=== PATIENT | male | born 1985 | race American Indian/Alaskan Native ===

== ENCOUNTER → 2024-05-21 | Outpatient (CLI) | payer OTHER, SELFPAY ==
--- NOTE | 2024-05-21 16:30 | XR_ITS ---
Examination: CT middle inner ear, without contrast. 2-D coronal reconstructions. 2-D sagittal reconstructions. Date and time of exam: May 21, 2024 1650 hours INDICATIONS: Diagnosis chronic mastoiditis, right ear hearing loss and drainage, 5 years post injury 9 years old CTDI: vol (mGy): 15.7 DLP: (mGycm):241 Technique: Multiple 1.0 mm axial sections of the middle inner ears bilaterally. High-resolution 64 slice scanner utilized. 2-D coronal reconstructions 2-D sagittal reconstructions Low dose protocols were performed. One or more of the following dose reduction techniques were used; automated exposure control, adjustment of the mA and/or KV according to patient size, use of iterative reconstruction technique. Findings: Axial sections of the right demonstrate severely reduced mastoid aeration. Jugular fossa and carotid canal do not appear remarkable. No deformity of the ossicles. Porus acusticus internus does not exhibit erosion. Cochlear apparatus unremarkable. Semicircular canals normal. External auditory canal open. Coronal reconstructions demonstrate no erosion of the scutum. No soft tissue mass in the attic or Prussak's space is seen. Ossicular mass intact. Axial sections of the left demonstrate severely reduced mastoid aeration. Fluid in the left mastoid air cells Jugular fossa and carotid canal do not appear remarkable. No deformity of the ossicles. Porus acusticus internus does not exhibit erosion. Cochlear apparatus unremarkable. Semicircular canals normal. External auditory canal open Coronal reconstructions demonstrate no erosion of the scutum. Trace soft tissue in the left Prussak's space is seen. Ossicular mass intact. Roof of the mastoid air cells appear intact bilaterally. Mucosal thickening in the maxillary antra ethmoid air cells with partial occlusion right ostiomeatal complex Atrophic right optic lobe with BB density in the lateral inferior orbit, measuring 5 mm Impression: Severe bilateral chronic mastoiditis Acute left mastoiditis Trace soft tissue in the left attic or Prussak's space, clinical correlation advised
== END | disposition home or self-care (01) ==
LOC: CCTX 16:08
PROVIDERS: Referring Provider Otolaryngology; Visit Provider Otolaryngology
DX: H70.13 Chronic mastoiditis, bilateral (principal); H70.002 Acute mastoiditis without complications, left ear
CPT/HCPCS: 70480